=== PATIENT | female | born 1990 | race Caucasian/White ===

== ENCOUNTER 2019-08-24 06:56 | Inpatient (IN) ==
[2019-08-24] MEDS ORDERED: Metoclopramide 10 MG/2 ML VIAL IVP PRN (07:14)
[2019-08-24] MEDS ORDERED: Lidocaine 1% 20 ML MDV ID PRN (07:14)
[2019-08-24] MEDS ORDERED: Naloxone 0.4 MG/ML INJ IVP PRN (07:14)
[2019-08-24] MEDS ORDERED: Ondansetron 4 MG/2 ML VIAL IVP PRN (07:14)
[2019-08-24] MEDS ORDERED: Famotidine 20 MG/2 ML VIAL IVP PRN (07:14)
[2019-08-24] MEDS ORDERED: Ringers Solution, Lactated 1,000 ML IVC SCH (07:15)
[2019-08-24] MEDS ORDERED: Epidural Premix (fent/bupiv) 110 ML EP SCH (07:30)
[2019-08-24] MEDS ORDERED: Ibuprofen 600 MG TABLET PO ONE ×2 (08:26→16:29)
[2019-08-24] MEDS ORDERED: Oxytocin 20 units/ LR 1000 mL 20 UNIT/1,000 ML BAG IVC ONE (12:00)
[2019-08-24] MEDS ORDERED: Prenatal Vit/FA 1 EACH TABLET ONE (12:11)
[2019-08-24] MEDS ORDERED: *HR* Buprenorphine HCl 8 MG TAB.SUBL SL ONE (12:23)
[2019-08-24] MEDS ORDERED: Oxytocin 20 units/ LR 1000 mL 20 UNIT/1,000 ML BAG IVC SCH (21:04)
[2019-08-24] MEDS ORDERED: Acetaminophen 325 MG TABLET PO PRN (21:04)
[2019-08-25] MEDS: Ibuprofen 600 MG TABLET PO PRN ×2 (00:39→08:44)
[2019-08-25 02:51] LABS: Basophils # 0.1 K/mcL (0.0-0.2); Basophils % 0.5 %; Eosinophils # 0.2 K/mcL (0.0-0.6); Eosinophils % 1.4 %; Hematocrit 36.8 % (35.3-44.9); Hemoglobin 11.9 g/dL (11.5-15.4); Immature Granulocytes % 0.4 % (0-4); Lymphocytes % 19.8 %; Mean Corpuscular HGB Conc 32.3 g/dL (31.6-35.5); Mean Corpuscular Hemoglobin 28.7 pg (28.0-33.3); Mean Corpuscular Volume 88.7 fL (83.0-100.0); Monocytes # 1.4 K/mcL (0.0-1.3); Monocytes % 8.6 %; Platelet Count 261 K/mcL (140-400); Red Blood Count 4.15 M/mcL (3.82-4.97); Red Cell Distribution Width 14.5 % (11.5-14.5); Segmented Neutrophils % 69.3 %; White Blood Count 15.9 K/mcL (4.3-11.1)
[2019-08-25 02:52] LABS: Lymphocytes # 3.2 K/mcL (0.6-4.6)
[2019-08-25 03:51] LABS: Amphetamine Screen,Urine Negative ng/mL (Cutoff=1000); Barbiturate Screen,Urine Negative ng/mL (Cutoff=200); Benzodiazepines Screen,Urine Negative ng/mL (Cutoff=200); Cannabinoid Screen,Urine Negative ng/mL (Cutoff = 50); Cocaine Screen,Urine Negative ng/mL (Cutoff= 300); Opiate Screen,Urine Negative ng/mL (Cutoff=300); Phencyclidine Screen,Urine Negative ng/mL (Cutoff=25)
[2019-08-25 05:42] LABS: Platelet Estimate Normal (Normal); Poikilocytosis 1+ (Not Present)
[2019-08-25 08:57] VITALS: BP 108/66
[2019-08-25] MEDS ORDERED: *HR* Buprenorphine HCl 8 MG TAB.SUBL SL SCH (09:00)
[2019-08-25] MEDS ORDERED: Prenatal Vit/FA 1 EACH TABLET PO SCH (09:00)
== END 2019-08-25 11:06 | disposition home or self-care (01) | DRG 807 ==
LOC: 1NENULAB → OBSVTOIN 06:56 → 1NENUOBS 10:00
PROVIDERS: ADMIT Registered Nurse; ATTEND Registered Nurse